=== PATIENT | female | born 1985 | race Caucasian/White ===

== ENCOUNTER 2017-07-28 07:06 | Emergency (ER) | payer MEDICAID ==
[~2017-07-28] VITALS: Ht 162.6 cm; Wt 74.8 kg
[2017-07-28 07:14] VITALS: Ht 162.6 cm; Wt 74.8 kg
[2017-07-28 09:27] VITALS: BP 117/85
== END 2017-07-28 09:27 | disposition home or self-care (01) ==
LOC: ED 07:06
DX: S20.211A Contusion of right front wall of thorax, initial encounter (principal); W18.2XXA Fall in (into) shower or empty bathtub, initial encounter; Y93.89 Activity, other specified; Y92.89 Other specified places as the place of occurrence of the external cause; Y99.8 Other external cause status

== ENCOUNTER 2019-12-27 21:25 | Emergency (ER) | payer BC ==
[~2019-12-27] VITALS: Ht 162.6 cm; Wt 74.4 kg
[2019-12-27 21:28] VITALS: Ht 162.6 cm; Wt 74.4 kg
[2019-12-27 23:54] LABS: CALCIUM 8.3 mg/dL (8.5-10.1); CARBON DIOXIDE 29.6 mmol/L (21-32); CHLORIDE SERUM 104 mmol/L (98-107); CREATININE SERUM 1.1 mg/dL (0.6-1.0); GFR1 > 60 mL/min; GLUCOSE SERUM 81 mg/dL (74-106); POTASSIUM SERUM 3.7 mmol/L (3.5-5.1); SODIUM SERUM 141 mmol/L (136-145)
[2019-12-27 23:58] LABS: ALBUMIN 3.7 g/dL (3.4-5.0); ALKALINE PHOSPHATASE 58 U/L (46-116); ALT/SGPT 18 U/L (14-59); AST/SGOT 12 U/L (15-37); BILIRUBIN TOTAL 0.6 mg/dL (0.20-1.00); LIPASE 93 IU/L (73-393); TOTAL PROTEIN, SERUM 6.7 g/dL (6.4-8.2)
[2019-12-27 23:59] LABS: BASOPHIL % 0.3 % (0-2); PLATELET COUNT 228 x10^3mcL (130-400); RED CELL DISTRIBUTION WIDTH 14.4 % (11.5-14.5)
[2019-12-28 00:05] LABS: AMPHETAMINE QUAL UR NONE DETECTED (See below)
[2019-12-28 01:14] VITALS: BP 106/55
== END 2019-12-28 01:15 | disposition home or self-care (01) ==
LOC: ED 21:25
PROVIDERS: Emergency Medicine
DX: R07.89 Other chest pain (principal); R05 Cough; R20.2 Paresthesia of skin
CPT/HCPCS: 36415; 85378; J1885; Q0092